=== PATIENT | female | born 2000 | race Caucasian/White ===

== ENCOUNTER 2022-09-20 20:31 | Emergency (ER) | payer OTHER ==
[~2022-09-20] VITALS: Ht 172.7 cm; Wt 81.6 kg
[2022-09-20 20:44] VITALS: BP 139/88
== END 2022-09-21 02:00 | disposition left against medical advice (07) ==
LOC: ER 20:31
DX: Z53.21 Procedure and treatment not carried out due to patient leaving prior to being seen by health care provider (principal)